=== PATIENT | female | born 1950 | race Caucasian/White ===

== ENCOUNTER 2018-09-02 16:35 | Observation (INO) | payer MEDICARE ==
[~2018-09-02] VITALS: Ht 149.9 cm; Wt 102.1 kg
[~2018-09-02 16:35] MED LIST: AMARYL2 MG PO; AMBIEN10 MG PO; ATENOLOL50 MG PO; LYRICA150 MG PO; MELOXICAM7.5 MG PO; MICARDIS HCT 81 EACH PO; NORCO 10-325 T1 EACH PO; PREMARIN0.625 MG PO; PRISTIQ ER50 MG PO; VICTOZA SQ
[2018-09-02] MEDS ORDERED: SODIUM CHLORIDE 0.9% 1000ML 1,000 ML IV SCH (18:00)
[2018-09-02] MEDS ORDERED: SODIUM CHLORIDE FLUSH 10 ML SYR INJ PRN (18:00)
[2018-09-02 19:50] VITALS: BP 165/74
[2018-09-02] MEDS ORDERED: LYRICA75 MG PO (20:46)
[2018-09-02] MEDS ORDERED: LANTUS 3ML100 UNITS/ SQ (20:46)
[2018-09-02] MEDS ORDERED: ASPIR-LOW81 MG (20:46)
[2018-09-02] MEDS ORDERED: METFORMIN HCL500 MG PO (20:46)
[2018-09-02] MEDS: SODIUM CHLORIDE 0.9% 1000ML 1,000 ML IV SCH (20:49)
[2018-09-02] MEDS ORDERED: INSULIN DETEMIR 100 UNIT/ML PEN SQ SCH (21:00)
[2018-09-02] MEDS ORDERED: ZOLPIDEM TARTRATE 10 MG TAB PO SCH (21:00)
[2018-09-02] MEDS ORDERED: HYDROCODONE/APAP 10MG-325MG TAB PO PRN (21:00)
[2018-09-02] MEDS ORDERED: PREGABALIN 75 MG CAP PO SCH (21:00)
[2018-09-02] MEDS ORDERED: PREMARIN0.625 MG PO (21:06)
[2018-09-03 00:27] VITALS: BP 94/50
[2018-09-03] MEDS: SODIUM CHLORIDE 0.9% 1000ML 1,000 ML IV SCH ×2 (04:36→08:47)
[2018-09-03 05:07] VITALS: BP 133/68
[2018-09-03 05:13] LABS: ANION GAP 15.6 mmol/L (8-16); CALCIUM 7.9 mg/dL (8.4-10.2); CREATININE, SERUM 1.57 mg/dL (0.57-1.11); POTASSIUM 3.6 mmol/L (3.5-5.1)
[2018-09-03] MEDS ORDERED: METFORMIN HCL 500 MG TAB PO SCH (08:00)
[2018-09-03 08:37] VITALS: BP 140/63
[2018-09-03] MEDS ORDERED: ESTROGENS CONJUGATED 0.625 MG TAB PO SCH (09:00)
[2018-09-03] MEDS ORDERED: PREGABALIN 75 MG CAP PO SCH (09:00)
[2018-09-03] MEDS ORDERED: ATENOLOL 50 MG TAB PO SCH (09:00)
[2018-09-03] MEDS ORDERED: HYDROCHLOROTHIAZIDE 25 MG TAB PO SCH (09:00)
[2018-09-03] MEDS ORDERED: TELMISARTAN 40 MG TAB PO SCH (09:00)
[2018-09-03] MEDS ORDERED: ASPIRIN 81 MG CHEW TAB PO SCH (09:00)
[2018-09-03] MEDS ORDERED: MELOXICAM 7.5 MG TAB PO SCH (09:00)
[2018-09-03] MEDS ORDERED: NON-FORMULARY MEDICATION (Pregabalin (Lyrica) 150 MG) PO SCH (09:00)
[2018-09-03 10:16] VITALS: BP 140/63
[2018-09-03 11:15] VITALS: BP 145/65
== END 2018-09-03 12:12 | disposition home or self-care (01) ==
LOC: FSED 16:35 → ERHOLD 17:57 → INTOOBSV 17:57 → MED/SURG2 19:59
PROVIDERS: ADMIT Internal Medicine; ATTEND Internal Medicine
DX: N17.9 Acute kidney failure, unspecified (principal); D50.9 Iron deficiency anemia, unspecified; E11.9 Type 2 diabetes mellitus without complications; I10 Essential (primary) hypertension; M79.7 Fibromyalgia; Z87.442 Personal history of urinary calculi; M35.00 Sjogren syndrome, unspecified; M19.90 Unspecified osteoarthritis, unspecified site; K52.9 Noninfective gastroenteritis and colitis, unspecified; E86.0 Dehydration
CPT/HCPCS: 36415; 80048; 82330; 82948 ×2; 99284; G0378 ×2; J7030 ×2

== ENCOUNTER 2021-05-24 17:20 | Emergency (ER) | payer MEDICARE ==
[~2021-05-24] VITALS: Ht 149.9 cm; Wt 102.1 kg
[~2021-05-24 17:20] MED LIST changes: +ASPIR-LOW81 MG; +LANTUS 3ML100 UNITS/ SQ; +LYRICA75 MG PO; +METFORMIN HCL500 MG PO
[2021-05-24] MEDS ORDERED: CASIRIVIMAB/IMDEVIMAB 10 ML in SODIUM CHLORIDE 0.9% 100 ML IV ONE (18:45)
== END 2021-05-24 20:45 | disposition home or self-care (01) ==
LOC: ER 18:31
DX: U07.1 COVID-19 (principal); I10 Essential (primary) hypertension; E11.9 Type 2 diabetes mellitus without complications; Z79.4 Long term (current) use of insulin; E78.5 Hyperlipidemia, unspecified; M79.7 Fibromyalgia; M35.00 Sjogren syndrome, unspecified
CPT/HCPCS: J7050